=== PATIENT | female | born 1960 | race Hispanic/Latino ===

== ENCOUNTER 2025-02-07 11:22 | Emergency (ER) | payer OTHER ==
[2025-02-07] MEDS ORDERED: NA CHLORIDE 0.9% 1,000 ML ONE (11:53)
[2025-02-07 12:03] LABS: Absolute Basophils 0.1 K/uL (0-0.5); Absolute Eosinophils 0.3 K/uL (0-0.5); Absolute Lymphocytes (CBC) 1.6 K/uL (0.7-4.9); Absolute Monocytes 0.7 K/uL (0.1-1.3); Absolute Neutrophil 5.8 K/uL (1.8-8.0); Basophils % 0.6 % (0-1.3); Eosinophils % 3.8 % (0-4.4); Hematocrit 32.8 % (36.0-45.0); Hemoglobin 11.2 g/dL (12.0-15.0); Lymphocytes % 18.7 % (15.3-44.8); MCH 28.5 pg (27.0-35.0); MCHC 34.1 g/dL (32.0-36.0); MCV 83.6 fL (80-100); MPV 9.1 fL (7.6-11.3); Monocytes % 7.8 % (3.3-12.3); Neutrophils % 69.1 % (41.7-73.7); Platelets 191 thou/uL (152-406); RBC Red Blood Cell Count 3.92 M/uL (3.86-4.86); Red Cell Distribution Width 14.5 % (12.1-15.2)
[2025-02-07 12:17] LABS: Albumin 3.6 g/dL (3.4-5.0); Albumin/Globulin Ratio 0.9 (1.1-1.8); Anion Gap 10.1 mEq/L (5.0-15.0); Bilirubin Total 0.4 mg/dL (0.2-1.0); Globulin 4.2 g/dL (2.3-3.5); Potassium 4.1 mEq/L (3.5-5.1); Protein, Total 7.8 g/dL (6.4-8.2)
--- NOTE | 2025-02-07 12:22 | RAD REPORT ---
EXAMINATION: XR RIGHT ELBOW CLINICAL INDICATION: Female, 64 years old. PAIN RIGHT TECHNIQUE: Multiple views of the right elbow were obtained. COMPARISON: No prior exam. FINDINGS: Moderate olecranon spur is present. No acute fracture, dislocation or aggressive marrow les ion.
[2025-02-07 12:23] LABS: Specific Gravity 1.007 (1.005-1.030); Sqamous Epithelial <5 /HPF (None Seen); Urine Bacteria <20 /HPF (<20); Urine Bilirubin NEGATIVE (Negative); Urine Blood Negative (Negative); Urine Clarity Turbid (Clear); Urine Color Colorless (Yellow); Urine Crystals Unidentified Few /HPF (None Seen); Urine Culture Reflex Order NOT NEEDED; Urine Glucose NEGATIVE (Negative); Urine Ketones NEGATIVE (Negative); Urine Microscopic Reflex YN ORDER UMIC; Urine Mucus Slight /HPF (None Seen); Urine Nitrite NEGATIVE (Negative); Urine Protein NEGATIVE (Negative); Urine RBC <5 /HPF (None Seen); Urine Urobilinogen Normal (Normal); Urine Yeast (Budding) Trace /HPF (None Seen)
--- NOTE | 2025-02-07 13:11 | ER ---
Nurse's Notes [facility] Name: Christina Pastrana Age: 64 yrs Sex: Female : 1960 Arrival Date: 02/07/2025 Time: 11:22 Bed 2 Private MD: Diagnosis: Fall on same level, unspecified;Unspecified injury of head, initial encounter;Contusion of right elbow;Obesity, unspecified;UTI/ Urinary tract infection, site not specified Presentation: 02/07 11:26 Chief complaint: Patient states: was using the bathroom and stood up to pull her iw underwear up , she lost her balance and fell to her right side, hit her head no LOC, hx of CVA with right sided weakness, pt c/o pain to head and right elbow. Coronavirus screen: At this time, the client does not indicate any symptoms associated with coronavirus-19. Ebola Screen: No symptoms or risks identified at this time. Initial Sepsis Screen: Does the patient meet any 2 criteria? No. Patient's initial sepsis screen is negative. Does the patient have a suspected source of infection? No. Patient's initial sepsis screen is negative. Risk Assessment: Do you want to hurt yourself or someone else? Patient reports no desire to harm self or others. Onset of symptoms was February 07, 2025. Transition of care: patient was received from another setting of care (long-term care facility), [place]. 11:26 Method Of Arrival: EMS: [facility] 11:26 Acuity: LORI 4 iw 11:47 Acuity: LORI 3 iw Triage Assessment: 11:45 General: Appears in no apparent distress. Behavior is calm, cooperative. iw Historical: - Allergies: 11:27 No Known Allergies; iw - Home Meds: 11:30 atorvastatin 80 mg oral tablet every day at bedtime [Active]; carvedilol 25 mg oral iw tablet 2 times per day [Active]; ergocalciferol (vit D2) (bulk) miscellaneous powder daily [Active]; furosemide 20 mg Oral tablet every morning [Active]; gabapentin 300 mg oral capsule 2 times per day [Active]; Gemtesa 75 mg oral tablet daily [Active]; Lantus U-100 Insulin 100 unit/mL Sub-Q solution 20 units every evening [Active]; lisinopril 40 mg Oral tablet daily [Active]; metformin 1,000 mg Oral tablet 2 times per day [Active]; methocarbamol 750 mg Oral tablet daily [Active]; Norvasc 10 mg Oral tablet daily [Active]; Ozempic 2 mg/dose (8 mg/3 mL) subcutaneous Pen Injector every week [Active]; tramadol 50 mg Oral tablet every 6 hours [Active]; Zoloft 50 mg Oral tablet daily [Active]; - PMHx: 11:27 Cerebrovascular accident; iw 11:30 Depressive disorder; Hypertensive disorder; Diabetes mellitus; breast cancer; iw - Immunization history:: Adult Immunizations up to date. - Infectious Disease History:: Denies. - Social history:: Smoking status: Patient denies any tobacco usage or history of. Screenin:00 [facility] ED Fall Risk Assessment (Adult) History of falling in the last 3 months, iw including since admission Yes- single mechanical fall (1 pt) Confusion or Disorientation No (0 pts) Intoxicated or Sedated No (0 pts) Impaired Gait Yes (1 pt) Mobility Assist Device Used Yes (1 pt) Altered Elimination No (0 pt) Score/Fall Risk Level 3 or more points = High Risk Oriented to surroundings, Maintained a safe environment. Abuse screen: Denies threats or abuse. Denies injuries from another. Nutritional screening: No deficits noted. Tuberculosis screening: No symptoms or risk factors identified. Assessment: 11:45 General: Appears in no apparent distress. Behavior is calm, cooperative. Pain: iw Complains of pain in forehead Pain currently is 8 out of 10 on a pain scale. Neuro: Level of Consciousness is awake, alert, obeys commands, Oriented to person, place, time, situation, Moves all extremities. Full function. Cardiovascular: Patient's skin is warm and dry. Respiratory: Respiratory effort is even, unlabored, Respiratory pattern is regular, symmetrical. 14:00 Reassessment: Patient appears in no apparent distress at this time. Patient and/or iw family updated on plan of care and expected duration. Pain level reassessed. Patient is alert, oriented x 3, equal unlabored respirations, skin warm/dry/pink. Patient states feeling better. Vital Signs: 11:30 BP 137 / 77; Pulse 93; Resp 16; Pulse Ox 98% on R/A; Weight 97.52 kg; Height 5 ft. 3 iw in. ; Pain 4/10; 11:30 Body Mass Index 38.09 (97.52 kg, 160.02 cm) iw 11:30 Pain Scale: Adult iw [place] Coma Score: 12:58 Eye Response: spontaneous(4). Motor Response: obeys commands(6). Verbal Response: radha oriented(5). Total: 15. ED Course: 11:25 Patient arrived in ED. iw 11:27 Triage completed. iw 11:28 Dione Stewart, RN is Primary Nurse. iw 11:29 Christopher Barron MD is Attending Physician. radha 11:35 Arm band placed on. iw 12:00 Inserted saline lock: 20 gauge in left antecubital area, using aseptic technique. iw 12:19 Elbow Right 3 View XRAY In Process Unspecified. EDMS 12:48 Head C Spine Mpr Wo Con In Process Unspecified. EDMS 13:10 Chest Abdomen Pelvis W Cont In Process Unspecified. EDMS 14:10 No provider procedures requiring assistance completed. IV discontinued, intact, iw bleeding controlled, No redness/swelling at site. Pressure dressing applied. Administered Medications: 12:15 Drug: NS 0.9% IV 1000 ml IV at 1000 ml once; to be given as a bolus over 60 minutes iw Route: IV; Rate: 1000 ml; Site: left antecubital; 13:00 Follow up: IV Status: Completed infusion iw 13:27 Drug: Rocephin IV 1 grams IV at per protocol once; Given slow IV push per pharmacy iw instructions Route: IV; Rate: per protocol; Site: left forearm; 13:35 Follow up: IV Status: Completed infusion iw 13:27 Drug: Acetaminophen PO 650 mg PO once Route: PO; iw 13:30 Follow up: Response: No adverse reaction iw Medication: 11:45 VIS not applicable for this client. iw Outcome: 13:10 Discharge ordered by . radha 14:10 Discharged to halfway. Report called to Nicolette iw 14:10 Condition: good 14:10 Discharge instructions given to patient, family, Instructed on discharge instructions, follow up and referral plans. medication usage, Demonstrated understanding of instructions, follow-up care, medications, Prescriptions given X 1, 14:11 Patient left the ED. iw Signatures: Dispatcher [employer] EDMS Christopher Barron MD MD cha Williams, Irene, RN RN iw
--- NOTE | 2025-02-07 13:11 | EDPHYS ---
Physician Documentation [facility] Name: Christina Pastrana Age: 64 yrs Sex: Female : 1960 Arrival Date: 02/07/2025 Time: : Bed 2 Private MD: ED Physician Christopher Barron HPI: 02/07 12:53 This 64 yrs old Female presents to ER via EMS with complaints of Fall Injury. radha 12:53 Details of fall: The patient fell from an upright position, while walking. Onset: The radha symptoms/episode began/occurred just prior to arrival. Associated injuries: The patient sustained injury to the head, contusion. Severity of symptoms: At their worst the symptoms were moderate, in the emergency department the symptoms are unchanged. The patient has experienced similar episodes in the past, several times. Historical: - Allergies: 11: No Known Allergies; iw - Home Meds: 11:30 atorvastatin 80 mg oral tablet every day at bedtime [Active]; carvedilol 25 mg oral iw tablet 2 times per day [Active]; ergocalciferol (vit D2) (bulk) miscellaneous powder daily [Active]; furosemide 20 mg Oral tablet every morning [Active]; gabapentin 300 mg oral capsule 2 times per day [Active]; Gemtesa 75 mg oral tablet daily [Active]; Lantus U-100 Insulin 100 unit/mL Sub-Q solution 20 units every evening [Active]; lisinopril 40 mg Oral tablet daily [Active]; metformin 1,000 mg Oral tablet 2 times per day [Active]; methocarbamol 750 mg Oral tablet daily [Active]; Norvasc 10 mg Oral tablet daily [Active]; Ozempic 2 mg/dose (8 mg/3 mL) subcutaneous Pen Injector every week [Active]; tramadol 50 mg Oral tablet every 6 hours [Active]; Zoloft 50 mg Oral tablet daily [Active]; - PMHx: 11:27 Cerebrovascular accident; iw 11:30 Depressive disorder; Hypertensive disorder; Diabetes mellitus; breast cancer; iw - Immunization history:: Adult Immunizations up to date. - Infectious Disease History:: Denies. - Social history:: Smoking status: Patient denies any tobacco usage or history of. ROS: 12:57 Constitutional: Negative for fever, chills, and weight loss, Eyes: Negative for injury, radha pain, redness, and discharge, ENT: Negative for injury, pain, and discharge, Neck: Negative for injury, pain, and swelling, Cardiovascular: Negative for chest pain, palpitations, and edema, Respiratory: Negative for shortness of breath, cough, wheezing, and pleuritic chest pain, Abdomen/GI: Negative for abdominal pain, nausea, vomiting, diarrhea, and constipation, Back: Negative for injury and pain, : Negative for injury, bleeding, discharge, and swelling, MS/Extremity: Negative for injury and deformity, Skin: Negative for injury, rash, and discoloration, Neuro: Negative for headache, weakness, numbness, tingling, and seizure, Psych: Negative for depression, anxiety, suicide ideation, homicidal ideation, and hallucinations, Allergy/Immunology: Negative for hives, rash, and allergies, Endocrine: Negative for neck swelling, polydipsia, polyuria, polyphagia, and marked weight changes, Hematologic/Lymphatic: Negative for swollen nodes, abnormal bleeding, and unusual bruising, Exam: 12:57 Constitutional: This is a well developed, well nourished patient who is awake, alert, radha and in no acute distress. Eyes: Pupils equal round and reactive to light, extra-ocular motions intact. Lids and lashes normal. Conjunctiva and sclera are non-icteric and not injected. Cornea within normal limits. Periorbital areas with no swelling, redness, or edema. ENT: Nares patent. No nasal discharge, no septal abnormalities noted. Tympanic membranes are normal and external auditory canals are clear. Oropharynx with no redness, swelling, or masses, exudates, or evidence of obstruction, uvula midline. Mucous membranes moist. Neck: Trachea midline, no thyromegaly or masses palpated, and no cervical lymphadenopathy. Supple, full range of motion without nuchal rigidity, or vertebral point tenderness. No Meningismus. Chest/axilla: Normal chest wall appearance and motion. Nontender with no deformity. No lesions are appreciated. Cardiovascular: Regular rate and rhythm with a normal S1 and S2. No gallops, murmurs, or rubs. Normal PMI, no JVD. No pulse deficits. Respiratory: Lungs have equal breath sounds bilaterally, clear to auscultation and percussion. No rales, rhonchi or wheezes noted. No increased work of breathing, no retractions or nasal flaring. Abdomen/GI: Soft, non-tender, with normal bowel sounds. No distension or tympany. No guarding or rebound. No evidence of tenderness throughout. Back: No spinal tenderness. No costovertebral tenderness. Full range of motion. Skin: Warm, dry with normal turgor. Normal color with no rashes, no lesions, and no evidence of cellulitis. MS/ Extremity: Pulses equal, no cyanosis. Neurovascular intact. Full, normal range of motion., bilateral aka Neuro: Awake and alert, GCS 15, oriented to person, place, time, and situation. Cranial nerves II-XII grossly intact. Motor strength 5/5 in all extremities. Sensory grossly intact. Cerebellar exam normal. Normal gait. Psych: Awake, alert, with orientation to person, place and time. Behavior, mood, and affect are within normal limits. 12:57 Head/face: Noted is contusion, hematoma, Vital Signs: 11:30 BP 137 / 77; Pulse 93; Resp 16; Pulse Ox 98% on R/A; Weight 97.52 kg; Height 5 ft. 3 iw in. ; Pain 4/10; 11:30 Body Mass Index 38.09 (97.52 kg, 160.02 cm) iw 11:30 Pain Scale: Adult iw [place] Coma Score: 12:58 Eye Response: spontaneous(4). Motor Response: obeys commands(6). Verbal Response: radha oriented(5). Total: 15. MDM: 11:29 Medical Screening Exam initiated radha 12:58 Differential diagnosis: Contusion of Hematoma on Laceration of Intracranial bleed- radha Concussion without LOC. cerebral contusion, intra-abdominal injury, closed head injury, C spine fracture, T spine fracture, L spine fracture. Differential diagnosis: abrasion, closed head injury, contusion, fracture, multiple trauma, sprain, strain. Data reviewed: vital signs, nurses notes, lab test result(s), EKG, radiologic studies, plain films. Consideration of Admission/Observation Escalation of care including admission/observation considered. I considered the following discharge prescriptions or medication management in the emergency department Medications were administered in the Emergency Department. See MAR. Independent interpretation of the following test(s) in the Emergency Department CT Scan: My interpretation is ct trauma. Test considered but Not performed: EKG: no ekg. Historians other than the Patient: Family Member: family well informed. Care significantly affected by the following chronic conditions: Diabetes, Hypertension, Obesity, cva x 2. Counseling: I had a detailed discussion with the patient and/or guardian regarding the historical points, exam findings, and any diagnostic results supporting the discharge/admit diagnosis, lab results, radiology results, the need for outpatient follow up, for definitive care, a family practitioner. 02/07 11:46 Order name: CBC with Diff; Complete Time: 12:46 [facility] 02/07 11:46 Order name: CMP; Complete Time: 12:46 [facility] 02/07 11:46 Order name: UA Rfx Mynor Cult if indicated; Complete Time: 12:46 [facility] 02/07 11:46 Order name: Elbow Right 3 View XRAY; Complete Time: 12:46 [facility] 02/07 11:59 Order name: Head C Spine Mpr Wo Con; Complete Time: 13:37 EDMS 02/07 12:00 Order name: Chest Abdomen Pelvis W Cont EDMS Administered Medications: 12:15 Drug: NS 0.9% IV 1000 ml IV at 1000 ml once; to be given as a bolus over 60 minutes iw Route: IV; Rate: 1000 ml; Site: left antecubital; 13:00 Follow up: IV Status: Completed infusion iw 13:27 Drug: Rocephin IV 1 grams IV at per protocol once; Given slow IV push per pharmacy iw instructions Route: IV; Rate: per protocol; Site: left forearm; 13:35 Follow up: IV Status: Completed infusion iw 13:27 Drug: Acetaminophen PO 650 mg PO once Route: PO; iw 13:30 Follow up: Response: No adverse reaction iw Disposition Summary: 02/07/25 13:10 Discharge Ordered Notes: Location: Home radha Problem: new radha Symptoms: have improved radha Condition: Stable radha Diagnosis - Fall on same level, unspecified radha - Unspecified injury of head, initial encounter radha - Contusion of right elbow radha - Obesity, unspecified radha - UTI/ Urinary tract infection, site not specified radha Followup: radha - With: Private Physician - When: 2 - 3 days - Reason: Recheck today's complaints, Continuance of care, Re-evaluation by your physician Discharge Instructions: - Discharge Summary Sheet radha - Head Injury, Adult radha - Obesity, Adult radha - Urinary Tract Infection, Adult radha - Urinary Tract Infection, Adult, [id number] radha - Head Injury, Adult, [id number] radha Forms: - Medication Reconciliation Form radha - Antibiotic Education radha - Prescription Opioid Use radha - Patient Portal Instructions radha - Leadership Thank You Letter radha Prescriptions: - Cipro 250 mg Oral tablet - take 1 tablet ORAL route every 12 hours; 14 tablet; Refills: 0, Product radha Selection Permitted Signatures: Dispatcher [employer] EDChristopher Martinez MD MD cha Williams, Irene, RN RN iw Corrections: (The following items were deleted from the chart) 11:59 11:46 Head C Spine CAP W [id number] ordered. EDMS EDMS
[2025-02-07] MEDS ORDERED: CEFTRIAXONE 1000 MG/VIAL ONE (13:14)
[2025-02-07] MEDS ORDERED: ACETAMINOPHEN 325 MG TABLET ONE (13:14)
--- NOTE | 2025-02-07 13:27 | RAD REPORT ---
EXAM: CT brain without contrast HISTORY: PAIN COMPARISON: None TECHNIQUE: Multiple contiguous axial images were obtained and a CT of the brain without contrast. Sag ittal and coronal reformats were performed. One or more of the following dose reduction techniques were used: Automated exposure control, adjust ment of the mA and/or kV according to patient size, and/or iterative reconstruction. FINDINGS: No evidence of hydrocephalus, intracranial hemorrhage, or extra-axial fluid collection. Moderate brain atrophy with moderate periventricular and deep white matter chronic microvascular isc hemic changes present. No evidence of midline shift or areas of brain edema. The calvarium is intact. The visualized paranasal sinuses and mastoid air cells are essentially clear . Nasal bone fracture likely present. EXAM: CT of the cervical spine without contrast HISTORY: Neck pain, injury PAIN TECHNIQUE: Multiple contiguous axial images were obtained in a CT of the cervical spine without contr ast. Sagittal and coronal reformats were performed. FINDINGS: Significant motion degradation is present. Grossly vertebral body heights are preserved. No gross evidence of acute fracture or subluxation.. No degenerative changes are present. No prevertebral soft tissue swelling is seen. The lung apices are unremarkable. COMBINED IMPRESSION: No evidence of acute intracranial abnormality. Nasal bone fracture suspected. No evidence of acute osseous abnormality of the cervical spine.
--- NOTE | 2025-02-07 13:37 | RAD REPORT ---
EXAM: CT CHEST, ABDOMEN AND PELVIS WITH CONTRAST CLINICAL INDICATION: PAIN TECHNIQUE: CT chest, abdomen and pelvis was performed, following the administration of contrast, as p er department protocol. Axial, sagittal and coronal reconstructions were obtained. One or more of the following dose reduction techniques were used: Automated exposure control, adjustment of the mA a nd/or kV according to patient size, and/or iterative reconstruction. Unless otherwise specified, incidental findings do not require dedicated imaging follow-up. COMPARISON: 02/07/2025 FINDINGS: LUNGS: No evidence of airspace or interstitial process. No nodules. PLEURA: No pleural effusion. No pneumothorax. MEDIASTINUM AND LYMPH NODES: No mediastinal mass or fluid collection. Normal size mediastinal, hilar, and axillary lymph nodes. OSSEOUS STRUCTURES AND CHEST WALL: Intact. Sternotomy wires. LIVER: The liver demonstrates mild fatty infiltration. No focal lesion or biliary dilatation is seen. Cholelithiasis. PANCREAS: No mass, ductal dilation, or zach-pancreatic fluid. SPLEEN: Normal size. No focal lesion. ADRENALS: Normal; no mass. KIDNEYS: Normal size and contour. No hydronephrosis. URINARY BLADDER: Normal contour. GASTROINTESTINAL TRACT: No bowel obstruction, free air, significant free fluid or abscess. APPENDIX: Normal appendix. LYMPH NODES: No lymphadenopathy. MUSCULOSKELETAL: Mild to moderate lower lumbar spondylosis. IMPRESSION: No acute abnormalities seen in the chest, abdomen or pelvis. Cholelithiasis.
[2025-02-07 14:14] VITALS: BP 137/77; O2SAT 98
== END 2025-02-07 14:11 | disposition home or self-care (01) ==
LOC: ER 11:22
DX: S00.83XA Contusion of other part of head, initial encounter (principal); S50.01XA Contusion of right elbow, initial encounter; N39.0 Urinary tract infection, site not specified; W18.30XA Fall on same level, unspecified, initial encounter; E66.9 Obesity, unspecified; E11.9 Type 2 diabetes mellitus without complications; Z79.4 Long term (current) use of insulin; I10 Essential (primary) hypertension; Z86.73 Personal history of transient ischemic attack (TIA), and cerebral infarction without residual deficits
CPT/HCPCS: 96361; 85025; 81001; 36415; 80053; 70450; 72125; 71260; 74177; 73080; 96374; 99284; Q9967 ×2; J7030; J0696